=== PATIENT | female | born 1955 | race American Indian/Alaskan Native ===

== ENCOUNTER 2019-09-06 09:29 | Emergency (ER) | payer OTHER ==
--- NOTE | 2019-09-06 09:37 | EDM.PDOC ---
ED HPI GENERAL MEDICAL PROBLEM - General Chief Complaint: ENT Problem Stated Complaint: infected tooth spreading to eye Time Seen by Provider: 09/06/19 09:37 Source of Information: Reports: Patient, RN, RN Notes Reviewed History Limitations: Reports: No Limitations - History of Present Illness INITIAL COMMENTS - FREE TEXT/NARRATIVE: Pt presents to ER with c/o an abscessed tooth at right upper molar/pre-molar area that is now causing swelling of the right face and throbbing pain. Pt reports she has had a broken tooth for over a year, but has not been able to see a dentist because [facility] will not help her. She denies fever, chills, N/V, or drainage from the tooth. Pt rates the pain 01/13. Nothing alleviates the pain. The pain is worse with eating/chewing, and with palpation of the area. Onset: Gradual Duration: Day(s): (1), Constant, Getting Worse Location: Reports: Face (mouth/face) Quality: Reports: Ache, Throbbing Severity: Severe Associated Symptoms: Reports: No Other Symptoms Right Face/Facial Pain Score (Numeric/FACES): 8 - Related Data Allergies Allergy/AdvReac Type Severity Reaction Status Date / Time No Known Allergies Allergy Verified 12/11/14 16:46 Home Meds: Home Meds Lisinopril 5 mg PO DAILY 12/13/14 [History] metFORMIN [Glucophage XR] 1,000 mg PO BID 12/13/14 [History] atorvaSTATin Calcium [Atorvastatin Calcium] 40 mg PO DAILY 09/06/19 [History] Past Medical History HEENT History: Reports: Other (See Below) (Dental decay) Other Neuro History: Was treated for heat stroke on Saturday (12/11/14) Endocrine/Metabolic History: Reports: Diabetes, Type II - Past Surgical History Other Musculoskeletal Surgeries/Procedures:: R knee, R leg Social & Family History - Family History Family Medical History: Noncontributory - Tobacco Use Smoking Status *Q: Former Smoker Tobacco Use Within Last Twelve Months: Cigarettes - Living Situation & Occupation Living situation: Reports: with Family ED ROS ENT - Review of Systems Review Of Systems: Comprehensive ROS is negative, except as noted in HPI. ED EXAM, ENT - Physical Exam Exam: See Below Exam Limited By: No Limitations General Appearance: Alert, No Apparent Distress, Obese Eye Exam: Bilateral Eye: EOMI, Normal Inspection, PERRL Ears: Normal External Exam, Hearing Grossly Normal Nose: Normal Inspection, Normal Mucousa, No Blood Mouth/Throat: Normal Lips, Normal Oropharynx, Dental Abcess, Dental Pain, Dental Tenderness, Other (Right face swelling, tender, no erythema) Head: Atraumatic, Normocephalic, Facial Swelling (Rt), Facial Tenderness (Rt) Neck: Normal Inspection, Supple, Non-Tender, Full Range of Motion. No: Lymphadenopathy (L), Lymphadenopathy (R) Respiratory/Chest: No Respiratory Distress Neurological: Alert, Oriented, CN II-XII Intact, Normal Cognition, Normal Gait, No Motor/Sensory Deficits Psychiatric: Normal Affect, Normal Mood Skin: Warm, Dry, Intact, Normal Color, No Rash Course - Vital Signs Last Recorded V/S: Last Vital Signs Temp 97.7 F 09/06/19 09:34 Pulse 76 09/06/19 09:34 Resp 16 09/06/19 09:34 BP 170/76 H 09/06/19 09:34 Pulse Ox 98 09/06/19 09:34 - Orders/Labs/Meds Orders: Active Orders 24 hr Category Date Time Status Peripheral IV Care [RC] . DIRECTED Care 09/06/19 09:49 Ordered Acetaminophen/HYDROcodone [Malone 325-10 MG] Med 09/06/19 09:51 Once 1 tab PO ONETIME ONE Lidocaine 2% [Xylocaine 2% Viscous] Med 09/06/19 09:50 Once 15 ml PO ONETIME ONE Ondansetron [Zofran] Med 09/06/19 09:50 Once 4 mg IV ONETIME ONE Piperacillin/Tazobactam [Zosyn] 3.375 gm Med 09/06/19 09:49 Ordered Sodium Chloride 0.9% [Normal Saline] 100 ml IV ONETIME Sodium Chloride 0.9% [Saline Flush] Med 09/06/19 09:49 Ordered 10 ml FLUSH ASDIRECTED PRN dexAMETHasone [Dexamethasone] Med 09/06/19 09:50 Once 20 mg IVPUSH ONETIME ONE Peripheral IV Insertion Adult [OM.PC] Stat Oth 09/06/19 09:49 Ordered Medication Orders Hydrocodone Bitart/Acetaminophen (Malone 325-10 Mg) 1 tab PO ONETIME ONE Stop: 09/06/19 09:52 Dexamethasone (Dexamethasone) 20 mg IVPUSH ONETIME ONE Stop: 09/06/19 09:51 Lidocaine HCl (Xylocaine 2% Viscous) 15 ml PO ONETIME ONE Stop: 09/06/19 09:51 Ondansetron HCl (Zofran) 4 mg IV ONETIME ONE Stop: 09/06/19 09:51 Meds: Medications Generic Name Dose Route Start Last Admin Trade Name Freq PRN Reason Stop Dose Admin Hydrocodone Bitart/Acetaminophen 1 tab 09/06/19 09:51 Malone 325-10 Mg PO 09/06/19 09:52 ONETIME ONE Dexamethasone 20 mg 09/06/19 09:50 Dexamethasone IVPUSH 09/06/19 09:51 ONETIME ONE Lidocaine HCl 15 ml 09/06/19 09:50 Xylocaine 2% Viscous PO 09/06/19 09:51 ONETIME ONE Ondansetron HCl 4 mg 09/06/19 09:50 Zofran IV 09/06/19 09:51 ONETIME ONE Departure - Departure Time of Disposition: 10:40 Disposition: Home, Self-Care 01 Condition: Good Clinical Impression: Dental abscess, Facial cellulitis - Discharge Information *PRESCRIPTION DRUG MONITORING PROGRAM REVIEWED*: Not Applicable *COPY OF PRESCRIPTION DRUG MONITORING REPORT IN PATIENT CORRINA: Not Applicable Instructions: Dental Abscess, [id number], Preseptal Cellulitis, Adult Forms: ED Department Discharge Additional Instructions: Rx: Clindamycin 300mg Rx: Viscous Lidocaine 2% May use over the counter Tylenol (Acetaminophen), or Ibuprofen (Advil/Motrin) as needed for pain. Follow directions on label for dosing and precautions. Follow up in clinic or with dentist at the first available appointment. Sepsis Event Note - Focused Exam Vital Signs: Vital Signs Temp Pulse Resp BP Pulse Ox 09/06/19 09:34 97.7 F 76 16 170/76 H 98 Date Exam was Performed: 09/06/19 Time Exam was Performed: 09:51 - My Orders Last 24 Hours: My Active Orders 09/06/19 09:49 Peripheral IV Care [RC] . DIRECTED Piperacillin/Tazobactam [Zosyn] 3.375 gm Sodium Chloride 0.9% [Normal Saline] 100 ml IV ONETIME Sodium Chloride 0.9% [Saline Flush] 10 ml FLUSH ASDIRECTED PRN Peripheral IV Insertion Adult [OM.PC] Stat 09/06/19 09:50 Lidocaine 2% [Xylocaine 2% Viscous] 15 ml PO ONETIME ONE Ondansetron [Zofran] 4 mg IV ONETIME ONE dexAMETHasone [Dexamethasone] 20 mg IVPUSH ONETIME ONE 09/06/19 09:51 Acetaminophen/HYDROcodone [Malone 325-10 MG] 1 tab PO ONETIME ONE - Assessment/Plan Last 24 Hours: My Active Orders 09/06/19 09:49 Peripheral IV Care [RC] . DIRECTED Piperacillin/Tazobactam [Zosyn] 3.375 gm Sodium Chloride 0.9% [Normal Saline] 100 ml IV ONETIME Sodium Chloride 0.9% [Saline Flush] 10 ml FLUSH ASDIRECTED PRN Peripheral IV Insertion Adult [OM.PC] Stat 09/06/19 09:50 Lidocaine 2% [Xylocaine 2% Viscous] 15 ml PO ONETIME ONE Ondansetron [Zofran] 4 mg IV ONETIME ONE dexAMETHasone [Dexamethasone] 20 mg IVPUSH ONETIME ONE 09/06/19 09:51 Acetaminophen/HYDROcodone [Malone 325-10 MG] 1 tab PO ONETIME ONE
[2019-09-06 09:40] VITALS: BP 170/76; PULSE 76
[2019-09-06] MEDS ORDERED: Sodium Chloride 0.9% 10 ML Syringe FLUSH PRN (09:49)
[2019-09-06] MEDS ORDERED: Piperacillin/Tazobactam 3.375 GM in Sodium Chloride 0.9% 100 ML IV ONE (09:49)
[2019-09-06] MEDS ORDERED: Lidocaine 2% Viscous Solution 15 ML Cup PO ONE (09:50)
[2019-09-06] MEDS ORDERED: Dexamethasone 4 MG/ML SDV IVPUSH ONE (09:50)
[2019-09-06] MEDS ORDERED: Ondansetron 4 MG/2 ML SDV IV ONE (09:50)
[2019-09-06] MEDS ORDERED: Acetaminophen/HYDROcodone 325-10 MG Tab PO ONE (09:51)
== END 2019-09-06 10:46 | disposition home or self-care (01) ==
LOC: DL.ED 09:29
DX: K04.7 Periapical abscess without sinus (principal); L03.211 Cellulitis of face; E11.9 Type 2 diabetes mellitus without complications; Z79.899 Other long term (current) drug therapy; Z79.84 Long term (current) use of oral hypoglycemic drugs; Z87.891 Personal history of nicotine dependence
CPT/HCPCS: 96365; 96375; 99283; A9270; J1100; J2405; J2543; J7050